=== PATIENT | female | born 1990 | race Caucasian/White ===

== ENCOUNTER 2019-09-13 14:32 | Outpatient (CLI) | payer OTHER, SELFPAY ==
--- NOTE | ~2019-09-13 | XR_ITS ---
EXAMINATION: XR lumbar spine 2-3V DATE: 09/13/2019 15:19 INDICATION: Unspecified osteoarthritis. TECHNIQUE: 3 views of lumbar spine were obtained. COMPARISON: None. FINDINGS: There is 4 degrees dextrocurvature of thoracolumbar spine. There is mild chronic anterior w edging of T11 vertebral body. There is mildly decreased disc height at T10-T11 and T11-T12. The facet joints are unremarkable. IMPRESSION: 1. Mild lower thoracic spondylosis. Reviewed, dictated and finalized at location A. TRICAL POWER STATION TECHNICIAN
--- NOTE | ~2019-09-13 | XR_ITS ---
EXAMINATION: XR hand BI arthritis min 3V DATE: 09/13/2019 15:19 INDICATION: Unspecified osteoarthritis, unspecified site. TECHNIQUE: 4 views of right hand and 4 views of left hand on a total of 7 radiographs were obtained. COMPARISON: Right hand radiographs 12/21/2006 FINDINGS: RIGHT HAND: Bone alignment is normal. No acute fracture. There is an old healed fracture of tuft of t hird distal phalanx. Joint spaces are normal. LEFT HAND: Bone alignment is normal. No fracture. Joint spaces are normal. IMPRESSION: 1. No arthritis. Reviewed, dictated and finalized at location A. BALL COACH IMPRESSION: 1. No arthritis.
--- NOTE | ~2019-09-13 | XR_ITS ---
EXAMINATION: XR foot RT standing 2V DATE: 09/13/2019 15:19 INDICATION: Other specified abnormal immunological findings in serum. TECHNIQUE: 2 views of right foot standing were obtained. COMPARISON: None. FINDINGS: There is mild hallux valgus. No fracture. Joint spaces are normal. IMPRESSION: 1. Mild hallux valgus. Reviewed, dictated and finalized at location A. CE ADMINISTRATION INSTRUCTOR IMPRESSION: 1. Mild hallux valgus.
--- NOTE | ~2019-09-13 | XR_ITS ---
EXAMINATION: XR foot LT standing 2V DATE: 09/13/2019 15:19 INDICATION: Other specified abnormal immunological findings in serum. TECHNIQUE: 2 views of left foot standing were obtained. COMPARISON: None. FINDINGS: Bone alignment is normal. No fracture. Joint spaces are normal. IMPRESSION: 1. Normal left foot. Reviewed, dictated and finalized at location A. ERY DELIVERER IMPRESSION: 1. Normal left foot.
== END 2019-09-13 14:33 | disposition home or self-care (01) ==
LOC: ANHIMG 14:38
PROVIDERS: Visit Provider Internal Medicine
DX: M19.90 Unspecified osteoarthritis, unspecified site (principal); R76.8 Other specified abnormal immunological findings in serum; M47.894 Other spondylosis, thoracic region; M20.11 Hallux valgus (acquired), right foot
CPT/HCPCS: 72100; 73130; 73620

== ENCOUNTER 2019-11-29 13:24 | Outpatient (CLI) | payer OTHER, SELFPAY ==
--- NOTE | ~2019-11-29 | XR_ITS ---
EXAMINATION: XR hip BI 2V w AP pelvis EXAM DATE: 11/29/2019 13:52 INDICATION: Osteoarthritis. Hip pain. TECHNIQUE: Each hip imaged independently (separate right and also left hip) crosstable lateral and ' frog-leg' and frontal projections for interpretation. Frontal projection pelvis. There is no prior study for comparison. FINDINGS: No radiographic evidence of hip avascular necrosis. There are no acute hip or pelvic fract ures or dislocations identified. There is no subcutaneous gas. Sacroiliac joints are unremarkable. T he soft tissue is unremarkable. There are no radiopaque foreign bodies. IMPRESSION: Normal x-ray exam. Reviewed, dictated and finalized at location A. IMPRESSION: Normal x-ray exam.
== END 2019-11-29 13:25 | disposition home or self-care (01) ==
PROVIDERS: Visit Provider Internal Medicine
DX: M19.90 Unspecified osteoarthritis, unspecified site (principal)
CPT/HCPCS: 73521